=== PATIENT | female | born 1995 | race Caucasian/White ===

== ENCOUNTER 2024-07-07 09:15 | Emergency (ER) | payer BC, SELFPAY ==
[2024-07-07 09:16] VITALS: BP 155/91; PULSE 99; RESP 16; TEMP 36.1; O2SAT 100
--- NOTE | 2024-07-07 09:39 | EDS_ITS ---
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 Last night around 1030 patient was walking her house and was clumsy. She tripped over her house slippers and fell to the ground. She did not hit her head. She had pain in both of her feet and ankles but is much worse on the left. She came in for further evaluation. Denies any associated numbness or tingling. Denies any bleeding issues. No other injuries reported. States she recently moved here from [facility]. [facility] Home Medications ?Medication ?Instructions ?Recorded ?Last Taken ?Type ibuprofen 600 mg tablet 600 mg PO Q6H PRN pain #20 t abs 07/07/24 Unknown Rx Allergy/AdvReac Type Severity Reaction Status Date / Time shellfish derived Allergy Anaphylaxis Verified 07/07/24 09:18 sulfamethoxazole (From Allergy Anaphylaxis Verified 07/07/24 09:18 Bactrim) trimethoprim (From Bactrim) Allergy Anaphylaxis Verified 07/07/24 09:18 latex AdvReac RASH Verified 07/07/24 09:18 Social History Smoking Status: Never smoker ROS ROS ED Constitutional Constitutional ED: Denies chills or fever(s) Musculoskeletal Musculoskeletal: Reports other Details: Bilateral ankle pain, left worse than right. Left foot pain. Integumentary Denies Abrasions or rash Neurologic Neurologic: Denies paresthesias or weakness Hematologic/Lymphatic Hematologic/Lymphatic: Denies easy bleeding or easy bruising EXAM Physical Exam Const Vital Signs: 07/07/24 09:16 Temperature 96.9 F L Temperature Source Temporal Pulse Rate 99 Respiratory Rate 16 Blood Pressure 155/91 H Blood Pressure Mean 112 Pulse Ox 100 Oxygen Delivery Method Room Air Positive well nourished and well developed General Appearance ED: well developed and NAD HEENT Reports moist mucous membranes Chest Wall inspection of chest normal Resp normal respiratory effort and clear to auscultation bilaterally Cardio regular rate, regular rhythm and no murmurs Cardio Narrative: 2+ DP pulses Extremity Extremity Narrative: Normal range of motion of the upper extremities. No bony tenderness on palpation. Right lower extremity?no deformity or soft tissue swelling. Normal Brooks test. No fibular head tenderness. No bony tenderness to the medial lateral malleolus. No bony tenderness to the foot. Left lower extremity?soft tissue swelling noted to the foot with some associated ecchymosis. No fibular head tenderness. Calf is soft. No significant bony tenderness to the medial or lateral malleolus. Normal Brooks test. Tenderness to palpation of the metatarsal bones, most pronounced over the medial (first and second metatarsals). Able to move her toes. No deformity of the toes. Neuro oriented x3, moves all extremities and no sensory deficits noted Sensorium / Orientation: alert Motor Exam: strength 5/5 throughout; Negative for general weakness Psych mental status grossly normal Skin no wounds Skin Narrative: Small area of ecchymosis to the dorsal left foot, more pronounced over the lateral aspect. MDM MDM MDM Narrative Medical decision making narrative: Patient evaluate for mechanical trip and injury to her left foot/ankle. Differential includes ankle sprain, foot sprain, ankle fracture, foot fracture. Suspicion for dislocation based on physical exam. Will obtain x-rays and apply ice. Patient took ibuprofen this morning. X-ray reviewed by myself as well as urology does show an acute oblique intra- articular fracture involving the proximal Medifast facets of the second metatarsal. There is soft tissue swelling. This is where her pain is. Given the intra-articular involvement and her possible history of brittle bones I did speak with Dr. Dowd, podiatry on-call. He recommends nonweightbearing and splint. Will follow-up in the office. Patient is comfortable with ibuprofen Tylenol for pain control. Is given crutches in the ER. Counseled on return precautions. Counseled on splint care. Discharged home in stable condition peer Radiography Diagnostic Testing: Clinical Impression(s) from Imaging Studies Ankle X-Ray 07/07/24 09:50 IMPRESSION: No acute osseous abnormalities. Reading Location: [facility] Foot X-Ray 07/07/24 09:50 IMPRESSION: Acute oblique intra-articular fracture involving the proximal metaphysis of the 2nd metatarsal. Soft tissue swelling. Reading Location: [facility] Procedures Lower Extremity Splints Lower Extremity Splint: Orthoglass and - (Posterior short slab) Splint Fabrication: Fabricated Location: Left Discharge Plan Triage Chief Complaint: Lower Extremity Injury ED Provider: Lisseth Link Dx/Rx/DC Orders Clinical Impression: Fracture of second metatarsal bone of left foot Instructions: ED Fracture, Foot Prescriptions: New ibuprofen 600 mg tablet 600 mg PO Q6H PRN (Reason: pain) Qty: 20 0RF Primary Care Provider: Care Physician,No Primary Referrals: Jon Dowd DPM [Med Staff - Active Staff] - Care Physician,No Primary [Primary Care Provider] - Activity Restrictions/Additional Instructions: Please follow-up with podiatry. Per their recommendation, do not put any weight on your foot. Wear the splint. They will evaluate you next week to determine if you require a boot or further intervention. Continue to alternate ibuprofen and Tylenol for pain. Ice through the splint. Print Language: Angolan Disposition Disposition: Home, Self Care
--- NOTE | 2024-07-07 09:50 | RAD_ITS ---
PROCEDURE: LEFT ANKLE, THREE VIEWS REASON FOR EXAM: PATIENT FELL. PAIN. TECHNIQUE: 3 views of the LEFT ankle COMPARISON: None FINDINGS: No visible fracture. No suspicious bone lesion. Normal alignment. Mortise appears intact. No effusion. Soft tissues are unremarkable. Metallic bracelet just proximal to the ankle. RAD/Ankle min 3 Views IMPRESSION: No acute osseous abnormalities. Reading Location: [facility]
--- NOTE | 2024-07-07 09:50 | RAD_ITS ---
PROCEDURE: LEFT FOOT, THREE VIEWS REASON FOR EXAM: PATIENT FELL. ANTEROLATERAL LEFT FOOT PAIN. TECHNIQUE: THREE VIEWS OF THE LEFT FOOT. COMPARISON: None. FINDINGS: LEFT FOOT: Oblique intra-articular fracture through the medial aspect of the proximal metaphysis of the 2nd metatarsal. Displacement of the fracture fragments by approximately 0.3 cm. Soft tissue swelling. RAD/Foot min 3 Views IMPRESSION: Acute oblique intra-articular fracture involving the proximal metaphysis of the 2nd metatarsal. Soft tissue swelling. Reading Location: [facility]
== END 2024-07-07 12:06 | disposition home or self-care (01) ==
PROVIDERS: Emergency Provider Emergency Medicine; Visit Provider Emergency Medicine
DX: S92.322A Displaced fracture of second metatarsal bone, left foot, initial encounter for closed fracture (principal); M25.571 Pain in right ankle and joints of right foot; M79.671 Pain in right foot; W18.09XA Striking against other object with subsequent fall, initial encounter; Y93.01 Activity, walking, marching and hiking; Y92.019 Unspecified place in single-family (private) house as the place of occurrence of the external cause; Z88.2 Allergy status to sulfonamides; Z88.1 Allergy status to other antibiotic agents
CPT/HCPCS: 29515; 73610; 73630; 99283

== ENCOUNTER → 2024-09-14 | Outpatient (CLI) | payer BC, SELFPAY ==
--- NOTE | 2024-09-14 16:33 | MRI_ITS ---
EXAM: MRI left foot without contrast CLINICAL HISTORY: Lisfranc fracture, dislocation COMPARISON: None TECHNIQUE: T1, T2, stir, multiplanar multisequence images through the left forefoot were obtained without contrast. FINDINGS: There is a fracture of the base of the 2nd metatarsal which extends to the proximal articular surface and Lisfranc articulation, with 0.45 cm of distraction. There is dorsal and lateral displacement of the remainder of the 2nd metatarsal base and proximal diaphysis. There is bony contusion in the medial, middle, and lateral cuneiform and in the cuboid, with no visible displaced fracture. There is bony contusion in the base of the 1st, 3rd, 4th, and 5th metatarsals with no visible displaced fracture. The Lisfranc articulation is widened to 0.6 cm. There is complete disruption of the plantar band, grade 2 sprain of the dorsal band, and attenuation of the interosseous band which shows intact fibers to the avulsed fragment. There is a edema, thickening and attenuation of the dorsal and plantar capsular components of the 3rd-5th tarsometatarsal articulations, with grade 2-3 sprain. Alignment is maintained. There is no discrete hematoma or drainable fluid collection. There is a small effusion at the 3rd and 4th tarsometatarsal articulations. The flexor and extensor tendons appear intact. There is no muscular atrophy. MRI/Lower Ext/No Jt/w/o IMPRESSION: There is a fracture of the base of the 2nd metatarsal which extends to the prox imal articular surface and Lisfranc articulation, with 0.45 cm of distraction. T Here is dorsal and lateral displacement of the remainder of the 2nd metatarsal base and proximal diaphysis. There is bony contusion in the medial, middle, and lateral cuneiform and in the cuboid, with no visible displaced fracture. There is bony contusion in the base of the 1st, 3rd, 4th, and 5th metatarsals w ith no visible displaced fracture. The Lisfranc articulation is widened to 0.6 cm. There is complete disruption of the plantar band, grade 2 sprain of the dorsal band, and attenuation of the interosseous band which shows intact fibers to the avulsed fragment. There is a edema, thickening and attenuation of the dorsal and plantar capsular components of the 3rd-5th tarsometatarsal articulations, with grade 2-3 sprain. There is a small effusion at the 3rd and 4th tarsometatarsal articulations. Reading Location: [facility]
== END | disposition home or self-care (01) ==
PROVIDERS: Referring Provider Podiatrist Foot & Ankle Surgery; Visit Provider Podiatrist Foot & Ankle Surgery
DX: S93.622A Sprain of tarsometatarsal ligament of left foot, initial encounter (principal); S93.325A Dislocation of tarsometatarsal joint of left foot, initial encounter
CPT/HCPCS: 73718

== ENCOUNTER → 2024-10-14 | Outpatient (CLI) | payer BC, SELFPAY ==
[2024-10-14 19:51] LABS: Absolute Lymphocyte Count 2.49 X10^3/uL (0.83-4.51); Absolute Neutrophil Count 5.9 X10^3/uL (2.0-7.7); Basophil# 0.05 X10^3/uL; Basophil% 0.5 % (0-1); Eosinophil# 0.11 X10^3/uL; Eosinophils% 1.2 % (0-5); Hematocrit 42.1 % (37-47); Hemoglobin 13.9 g/dL (12.0-15.0); Lymphocyte # 2.49 X10^3/ul (0.83-4.51); Lymphocyte % 27.1 % (19-41); Mean Corpuscular Hgb 30.6 pg (27.0-32.0); Mean Corpuscular Volume 92.7 fL (81-99); Mean Platelet Vol. 11.2 fl (6.2-12.0); Monocyte# 0.59 X10^3/uL; Monocyte% 6.4 % (0-10); NRBC Flagged by Analyzer 0 % (0-5); Neutrophil # 5.94 X10^3/uL (2.7-7.7); Neutrophil % 64.7 % (47-70); Platelet Count 223 K/mm3 (150-450); RBC Distribution Width CV 12.9 % (11.6-14.6); RBC Distribution Width SD 43.9 fl (35.1-43.9); Red Blood Count 4.54 M/mm3 (4.2-5.4); White Blood Count 9.2 K/mm3 (4.4-11.0)
[2024-10-14 20:33] LABS: ALB/GLOB Ratio 1.3 RATIO (0.9-2.4); AST(SGOT) 15 U/L (<=31); Alanine Aminotransfer ALT/SGPT 6 U/L (<=34); Albumin, Serum 4.3 g/dL (3.5-5.0); Alkaline Phosphatase 64 U/L (35-104); Anion Gap 13 (5-15); BUN 9 mg/dL (4-19); BUN/Creat Ratio 14.4 RATIO (10-20); Calcium,Total 9.7 mg/dL (7.6-11.0); Carbon Dioxide 23.1 mmol/L (21.0-32.0); Chloride 100 mmol/L (98-108); Cholesterol 166 mg/dL (<=200); Creatinine, Serum 0.65 mg/dL (0.70-1.20); EST Glomerular Filtration Rate 121 (>60); Globulin 3.4 g/dL (2.2-4.2); Glucose 67 mg/dL (70-99); High Density Lipoprotein 44 mg/dL; Low Density Lipoprotein Calc. 106 mg/dL; Potassium 3.9 mmol/L (3.3-5.1); Protein, Total 7.7 g/dL (5.9-8.4); Sodium Level 137 mmol/L (133-145); Total Bilirubin 0.54 mg/dL (0.00-1.30); Triglycerides 79 mg/dL; Very Low Density Lipoprotein 16 mg/dL (5-40); cholesterol:hdl ratio screen 3.79
== END | disposition home or self-care (01) ==
LOC: MTLAB 15:31
PROVIDERS: PCP Family Medicine; Referring Provider Family Medicine; Visit Provider Family Medicine
DX: Z01.818 Encounter for other preprocedural examination (principal); Z13.220 Encounter for screening for lipoid disorders; Z13.1 Encounter for screening for diabetes mellitus
CPT/HCPCS: 36415; 80053; 80061; 85025

== ENCOUNTER → 2024-10-21 | Outpatient (CLI) | payer BC, SELFPAY ==
[2024-10-21 10:51] LABS: Hemoglobin A1c 5.1 % (<=5.6)
[2024-10-21 13:09] LABS: Magnesium 2.2 mg/dL (1.5-2.2); Vitamin D,25 Hydroxy 27.2 ng/mL (30-100)
== END | disposition home or self-care (01) ==
LOC: MTLAB 08:40
PROVIDERS: PCP Family Medicine; Referring Provider Podiatrist Foot & Ankle Surgery; Visit Provider Podiatrist Foot & Ankle Surgery
DX: Z01.818 Encounter for other preprocedural examination (principal)
CPT/HCPCS: 36415; 82306; 83036; 83735

== ENCOUNTER 2024-10-24 06:02 | Day surgery (SDC) | payer BC, SELFPAY ==
[2024-10-24] VITALS (11 sets, daily range): BP systolic 100–123; BP diastolic 68–81; PULSE 79–105; RESP 16–20; TEMP 36.2–37; O2SAT 88–100; BMI 29.7
--- OUTSIDE RECORDS SUMMARY | 2024-10-24 06:05 | XMS RPT_ITS | CCD ---
Author Organization [facility] Care Team Providers Care Acquisition Marketing Manager Name Role Phone AnshuladrianLisseth Attending Unavailable Care Physician, No Primary Primary Care Unava ilable DowdJon Referring Unavailable Dowd, Jon Attending Unavailable Emilie, Chalon Primary Care Unavailable Dowd, Jon Attending Unavailable Emilie, Chalon Primary Care Unavailable Dowd, Jon Referring Unavailable Dowd, Jon Attending Unavailable Care Physician, No Primary Primary Care Unava ilable Emilie, Chalon Referring Unavailable Emilie, Chalon Attending Unavailable Emilie, Chalon Primary Care Unavailable Allergies Allergy Classification Reported Allergen(s) Allergy Type Date of Onset Reaction(s) Facility (1 source) Latex Drug allergy (disorder) 5 [facility] Repository (1 source) Shellfish Drug allergy (disorder) 5 [facility] Repository (1 source) Sulfamethoxazole Drug Allergy 5 [facility] Repository (1 source) Trimethoprim Drug Allergy 5 [facility] Repository Problems Active Problems Problem Classification Problem Date Documented Date Episodic/Chronic Sprains and strains (1 source) Sprain of tarsometatarsal ligament of left foot, initial encounter; Translations: [Sprain of tarsometatarsal ligament of left foot, initial encounter] Onset: 09-17-2024 Episodic Past or Other Problems Problem Classification Problem Date Documented Da te Episodic/Chronic Other non-traumatic joint disorders (1 source) Pain in left ankle and joints of left foot; Translations: [Pain in left ankle and joints of left foot] Onset: 07-21-2024 Episodic Results Test Name Value Interpretation Reference Range Facil ity Hemoglobin A1con 10-21-2024 HbA1c (Bld) [Mass fraction] 5.1 % Normal <=5.6 [facility] Comment on above: Result Comment: Norm al < 5.7 % Prediabetic 5.7 - 6.4 % Diabetic >or= 6.5 % Please note range changes. Performed By: #### L 506.1001, L501.5200, L501.9985 #### [facility] [address] [place], [address] Magnesiumon 10-21-2024 Magnesium [Mass/Vol] 2.2 mg/dL Normal 1.5-2.2 [facility] Comment on above: Performed By: #### L 506.1001, L501.5200, L501.9985 #### [facility] [address] [place], [address] Vitamin D,25 Hydroxyon 10-21 Vitamin D 25-OH 27.2 ng/mL Low 30-100 [facility] Comment on above: Result Comment: Anne Marie min D Status Deficiency: <20 ng/mL (50nmol/L) Insufficiency: 20-30 ng/mL (50-75 nmol/L) Sufficiency: 30-100 ng/mL (75-250 nmol/L) Toxicity: >100 ng/mL (>250 nmol/L) Performed By: #### L 506.1001, L501.5200, L501.9985 #### [facility] [address] [place], [address] CBC W/Diff, Automatedon 05-3 0-2024 Absolute Lymph 2.49 X10 3/uL Normal 0.83-4.51 [facility] Comment on above: Performed By: #### L 500.4050, L500.4100, L100.0100 #### [facility] [address] [place], [address] Absolute Neut 5.9 X10 3/uL Normal 2.0-7.7 [facility] Comment on above: Performed By: #### L 500.4050, L500.4100, L100.0100 #### [facility] [address] [place], [address] Basophils/100 WBC (Bld) 0.5 % Normal 0-1 [facility] Comment on above: Performed By: #### L 500.4050, L500.4100, L100.0100 #### [facility] [address] [place], [address] Eosinophils/100 WBC (Bld) 1.2 % Normal 0-5 [facility] Comment on above: Performed By: #### L 500.4050, L500.4100, L100.0100 #### [facility] [address] [place], [address] Erythrocyte distribution width (RBC) [Ratio] 12.9 % Normal 11.6-14.6 [facility] Comment on above: Performed By: #### L 500.4050, L500.4100, L100.0100 #### [facility] [address] [place], [address] Hematocrit (Bld) [Volume fraction] 42.1 % Normal 37-47 [facility] Comment on above: Performed By: #### L 500.4050, L500.4100, L100.0100 #### [facility] [address] [place], [address] Hemoglobin (Bld) [Mass/Vol] 13.9 g/dL Normal 12.0-15.0 [facility] Comment on above: Performed By: #### L 500.4050, L500.4100, L100.0100 #### [facility] [address] [place], [address] IG% 0.100 Normal 0.0-0.9 [facility] Comment on above: Result Comment: IG% - Immature Granulocytes (promyelocytes, myelocytes and metamyelocytes) > 1% indicates that a LEFT SHIFT is Present. Performed By: #### L 500.4050, L500.4100, L100.0100 #### [facility] [address] [place], [address] Lymphocytes/100 WBC (Bld) 27.1 % Normal 19-41 [facility] Comment on above: Performed By: #### L 500.4050, L500.4100, L100.0100 #### [facility] [address] [place], [address] MCH (RBC) [Entitic mass] 30.6 pg Normal 27.0-32.0 [facility] Comment on above: Performed By: #### L 500.4050, L500.4100, L100.0100 #### [facility] [address] [place], [address] MCHC (RBC) [Mass/Vol] 33.0 g/dL Normal 32-36 [facility] Comment on above: Performed By: #### L 500.4050, L500.4100, L100.0100 #### [facility] [address] [place], [address] MCV (RBC) [Entitic vol] 92.7 fL Normal 81-99 [facility] Comment on above: Performed By: #### L 500.4050, L500.4100, L100.0100 #### [facility] [address] [place], [address] Monocytes/100 WBC (Bld) 6.4 % Normal 0-10 [facility] Comment on above: Performed By: #### L 500.4050, L500.4100, L100.0100 #### [facility] [address] [place], [address] Neutrophils/100 WBC (Bld) 64.7 % Normal 47-70 [facility] Comment on above: Performed By: #### L 500.4050, L500.4100, L100.0100 #### [facility] [address] [place], [address] Nucleated RBC (Bld) [#/Vol] 0 10*3/uL Normal 0-5 [facility] Comment on above: Performed By: #### L 500.4050, L500.4100, L100.0100 #### [facility] [address] [place], [address] Platelet mean volume (Bld) [Entitic vol] 11.2 fL Normal 6.2-12.0 [facility] Comment on above: Performed By: #### L 500.4050, L500.4100, L100.0100 #### [facility] [address] [place], [address] Platelets (Bld) [#/Vol] 223 10*3/uL Normal 150-450 [facility] Comment on above: Performed By: #### L 500.4050, L500.4100, L100.0100 #### [facility] [address] [place], [address] RBC (Bld) [#/Vol] 4.54 10*6/uL Normal 4.2-5.4 [facility] Comment on above: Performed By: #### L 500.4050, L500.4100, L100.0100 #### [facility] [address] [place], [address] RDW SD 43.9 fl Normal 35.1-43.9 [facility] Comment on above: Performed By: #### L 500.4050, L500.4100, L100.0100 #### [facility] [address] [place], [address] WBC (Bld) [#/Vol] 9.2 10*3/uL Normal 4.4-11.0 [facility] Comment on above: Performed By: #### L 500.4050, L500.4100, L100.0100 #### [facility] [address] [place], [address] Comprehensive Metabolic [facility] 10-14-2024 Albumin [Mass/Vol] 4.3 g/dL Normal 3.5-5.0 [facility] Comment on above: Performed By: #### L 500.4050, L500.4100, L100.0100 #### [facility] [address] [place], [address] Albumin/Globulin [Mass ratio] 1.3 {ratio} Normal 0.9-2.4 [facility] Comment on above: Performed By: #### L 500.4050, L500.4100, L100.0100 #### [facility] [address] [place], [address] ALK PHOS 64 U/L Normal 35-104 [facility] Comment on above: Performed By: #### L 500.4050, L500.4100, L100.0100 #### [facility] [address] [place], [address] ALT [Catalytic activity/Vol] 6 U/L Normal <=34 [facility] Comment on above: Performed By: #### L 500.4050, L500.4100, L100.0100 #### [facility] [address] [place], [address] AST [Catalytic activity/Vol] 15 U/L Normal <=31 [facility] Comment on above: Performed By: #### L 500.4050, L500.4100, L100.0100 #### [facility] [address] [place], [address] Bilirubin [Mass/Vol] 0.54 mg/dL Normal 0.00-1.30 [facility] Comment on above: Performed By: #### L 500.4050, L500.4100, L100.0100 #### [facility] [address] [place], [address] BUN/CRE 14.4 RATIO Normal 10-20 [facility] Comment on above: Performed By: #### L 500.4050, L500.4100, L100.0100 #### [facility] [address] [place], [address] Calcium [Mass/Vol] 9.7 mg/dL Normal 7.6-11.0 [facility] Comment on above: Performed By: #### L 500.4050, L500.4100, L100.0100 #### [facility] [address] [place], [address] Chloride [Moles/Vol] 100 mmol/L Normal 98-108 [facility] Comment on above: Performed By: #### L 500.4050, L500.4100, L100.0100 #### [facility] [address] [place], [address] CO2 [Moles/Vol] 23.1 mmol/L Normal 21.0-32.0 [facility] Comment on above: Performed By: #### L 500.4050, L500.4100, L100.0100 #### [facility] [address] [place], [address] Creatinine [Mass/Vol] 0.65 mg/dL Low 0.70-1.20 [facility] Comment on above: Performed By: #### L 500.4050, L500.4100, L100.0100 #### [facility] [address] [place], [address] GAP 13 Normal 5-15 [facility] Comment on above: Performed By: #### L 500.4050, L500.4100, L100.0100 #### [facility] [address] [place], [address] GFR/1.73 sq M.predicted among non-blacks MDRD (S/P/Bld) [Vol rate/Area] 121 mL/min/{1.73_m2} Normal >60 [facility] Comment on above: Result Comment: mL/m in/1.73m2 CKD-EPI Creatinine Equation (2020) Performed By: #### L 500.4050, L500.4100, L100.0100 #### [facility] [address] [place], [address] Globulin (S) [Mass/Vol] 3.4 g/dL Normal 2.2-4.2 [facility] Comment on above: Performed By: #### L 500.4050, L500.4100, L100.0100 #### [facility] [address] [place], [address] Glucose [Mass/Vol] 67 mg/dL Low 70-99 [facility] Comment on above: Performed By: #### L 500.4050, L500.4100, L100.0100 #### [facility] [address] [place], [address] Potassium [Moles/Vol] 3.9 mmol/L Normal 3.3-5.1 [facility] Comment on above: Performed By: #### L 500.4050, L500.4100, L100.0100 #### [facility] [address] [place], [address] Sodium [Moles/Vol] 137 mmol/L Normal 133-145 [facility] Comment on above: Performed By: #### L 500.4050, L500.4100, L100.0100 #### [facility] [address] [place], [address] T PROT 7.7 g/dL Normal 5.9-8.4 [facility] Comment on above: Performed By: #### L 500.4050, L500.4100, L100.0100 #### [facility] [address] [place], [address] Urea nitrogen [Mass/Vol] 9 mg/dL Normal 4-19 [facility] Comment on above: Performed By: #### L 500.4050, L500.4100, L100.0100 #### [facility] [address] [place], [address] Lipid Profileon 10-14-2024 CHOL:HDL 3.79 Normal [facility] Comment on above: Performed By: #### L 500.4050, L500.4100, L100.0100 #### [facility] [address] [place], [address] Cholesterol [Mass/Vol] 166 mg/dL Normal <=200 [facility] Comment on above: Result Comment: Chol esterol level, Desirable <200 mg/dL Borderline high cholesterol 200-239 mg/dL High cholesterol >=240 mg/dL Recommendations of the NCEP Adult Treatment Panel for the following risk-cutoff thresholds for the [place] population. Performed By: #### L 500.4050, L500.4100, L100.0100 #### [facility] [address] [place], [address] Cholesterol in HDL [Mass/Vol] 44 mg/dL Normal [facility] Comment on above: Result Comment: Laury onal Cholesterol Education Program (NCEP) guidelines: <40 mg/dL: Low HDL-cholesterol (major risk factor for CHD) >= 60 mg/dL: High HDL-cholesterol (negative risk factor for CHD) HDL-cholesterol is affected by a number of factors, e.g. smoking, exercise, hormones, sex and age. Performed By: #### L 500.4050, L500.4100, L100.0100 #### [facility] [address] [place], [address] Cholesterol in LDL [Mass/Vol] 106 mg/dL Normal [facility] Comment on above: Result Comment: Bord ljiwcu=370-127 mg/dL Higher Ccyq=387 mg/dL or greater Performed By: #### L 500.4050, L500.4100, L100.0100 #### [facility] [address] [place], [address] Cholesterol in VLDL [Mass/Vol] 16 mg/dL Normal 5-40 [facility] Comment on above: Performed By: #### L 500.4050, L500.4100, L100.0100 #### [facility] [address] [place], [address] Triglyceride [Mass/Vol] 79 mg/dL Normal [facility] Comment on above: Result Comment: The drugs N-Acetylcysteine and Metamizole may falsely depress this assay. Normal range: <150 mg/dL Borderline High: 150-199 mg/dL High: 200-499 mg/dL Very High: >500 mg/dL Performed By: #### L 500.4050, L500.4100, L100.0100 #### [facility] [address] [place], [address] Lower Ext/No Jt/w/oon 2024 Lower Ext/No Jt/w/o [facility] Imaging Services [address] [place] [address] Lower Ext/No Jt/w/o MR#: [id number] Acct: [id number] Name: ELVIRA MURPHY YUDY Rep #: [id number] : 1995 F 28 From: Phill Sweeney MD PCP: Care Physician,No Primary Status: REG CLI Study: Lower Ext/No Jt/w/o Date of Exam: 09/14/24 Exam# [id number] Ordering Dr: Jon Dowd DPM EXAM: MRI left foot without contrast CLINICAL HISTORY: Lisfranc fracture, dislocation COMPARISON: None TECHNIQUE: T1, T2, stir, multiplanar multisequence images through the left forefoot were obtained without contrast. FINDINGS: There is a fracture of the base of the 2nd metatarsal which extends to the proximal articular surface and Lisfranc articulation, with 0.45 cm of distraction. There is dorsal and lateral displacement of the remainder of the 2nd metatarsal base and proximal diaphysis. There is bony contusion in the medial, middle, and lateral cuneiform and in the cuboid, with no visible displaced fracture. There is bony contusion in the base of the 1st, 3rd, 4th, and 5th metatarsals with no visible displaced fracture. The Lisfranc articulation is widened to 0.6 cm. There is complete disruption of the plantar band, grade 2 sprain of the dorsal band, and attenuation of the interosseous band which shows intact fibers to the avulsed fragment. There is a edema, thickening and attenuation of the dorsal and plantar capsular components of the 3rd-5th tarsometatarsal articulations, with grade 2-3 sprain. Alignment is maintained. There is no discrete hematoma or drainable fluid collection. There is a small effusion at the 3rd and 4th tarsometatarsal articulations. The flexor and extensor tendons appear intact. There is no muscular atrophy. MRI/Lower Ext/No Jt/w/o IMPRESSION: There is a fracture of the base of the 2nd metatarsal which extends to the proximal articular surface and Lisfranc articulation, with 0.45 cm of distraction. T Here is dorsal and lateral displacement of the remainder of the 2nd metatarsal base and proximal diaphysis. There is bony contusion in the medial, middle, and lateral cuneiform and in the cuboid, with no visible displaced fracture. There is bony contusion in the base of the 1st, 3rd, 4th, and 5th metatarsals with no visible displaced fracture. The Lisfranc articulation is widened to 0.6 cm. There is complete disruption of the plantar band, grade 2 sprain of the dorsal band, and attenuation of the interosseous band which shows intact fibers to the avulsed fragment. There is a edema, thickening and attenuation of the dorsal and plantar capsular components of the 3rd-5th tarsometatarsal articulations, with grade 2-3 sprain. There is a small effusion at the 3rd and 4th tarsometatarsal articulations. Reading Location: [facility] CC: NATACHA Dowd; No Primary Care Physician Mannequin Decorator: Signed Normal [facility] Ankle min 3 Viewson 07-07-19 Ankle min 3 Views [facility] Imaging Services [address] [place] [address] Ankle min 3 Views MR#: [id number] Acct: [id number] Name: ELVIRA MURPHY YUDY Rep #: [id number] : 1995 F 28 From: Duane Galicia MD PCP: Care Physician,No Primary Status: REG ER Study: Ankle min 3 Views Date of Exam: 07/07/24 Exam# [id number] Ordering Dr: Lisseth Link DO PROCEDURE: LEFT ANKLE, THREE VIEWS REASON FOR EXAM: PATIENT FELL. PAIN. TECHNIQUE: 3 views of the LEFT ankle COMPARISON: None FINDINGS: No visible fracture. No suspicious bone lesion. Normal alignment. Mortise appears intact. No effusion. Soft tissues are unremarkable. Metallic bracelet just proximal to the ankle. RAD/Ankle min 3 Views IMPRESSION: No acute osseous abnormalities. Reading Location: [facility] CC: Dr. Lisseth Link DO; No Primary Care Physician Mannequin Decorator: Signed Normal [facility] Emergency Department Summary on 07-07-2024 Emergency Department Summary [facility] Medical Records Department [address] [place] [address] Emergency Department Summary 07/07/24 MR#: [id number] Acct: [id number] Name: ELVIRA MURPHY YUDY Rep #: [id number] : 1995 28 From: Lisseth Link DO PCP: Care Physician,No Primary Status:REG ER Location: ED HPI History of Present Illness Chief Complaint: Lower Extremity Injury Informant: patient Narrative Narrative: Patient is a 28-year-old female with 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 Last night around 1030 patient was walking her house and was clumsy. She tripped over her house slippers and fell to the ground. She did not hit her head. She had pain in both of her feet and ankles but is much worse on the left. She came in for further evaluation. Denies any associated numbness or tingling. Denies any bleeding issues. No other injuries reported. States she recently moved here from [facility] Home Medications ???Medication ???Instructions ???Recorded ???Last Taken ???Type ibuprofen 600 mg tablet 600 mg PO Q6H PRN pain #20 tabs Unknown Rx Allergy/AdvReac Type Severity Reaction Status Date / Time shellfish derived Allergy Anaphylaxis Verified 07/07/24 09:18 sulfamethoxazole (From Allergy Anaphylaxis Verified 07/07/24 09:18 Bactrim) trimethoprim (From Bactrim) Allergy Anaphylaxis Verified 07/07/24 09:18 latex AdvReac RASH Verified 07/07/24 09:18 Social History Smoking Status: Never smoker ROS ROS ED Constitutional Constitutional ED: Denies chills or fever(s) Musculoskeletal Musculoskeletal: Reports other Details: Bilateral ankle pain, left worse than right. Left foot pain. Integumentary Denies Abrasions or rash Neurologic Neurologic: Denies paresthesias or weakness Hematologic/Lymphatic Hematologic/Lymphatic: Denies easy bleeding or easy bruising EXAM Physical Exam Const Vital Signs: 07/07/24 09:16 Temperature 96.9 F L Temperature Source Temporal Pulse Rate 99 Respiratory Rate 16 Blood Pressure 155/91 H Blood Pressure Mean 112 Pulse Ox 100 Oxygen Delivery Method Room Air Positive well nourished and well developed General Appearance ED: well developed and NAD HEENT Reports moist mucous membranes Chest Wall inspection of chest normal Resp normal respiratory effort and clear to auscultation bilaterally Cardio regular rate, regular rhythm and no murmurs Cardio Narrative: 2+ DP pulses Extremity Extremity Narrative: Normal range of motion of the upper extremities. No bony tenderness on palpation. Right lower extremity???no deformity or soft tissue swelling. Normal Brooks test. No fibular head tenderness. No bony tenderness to the medial lateral malleolus. No bony tenderness to the foot. Left lower extremity???soft tissue swelling noted to the foot with some associated ecchymosis. No fibular head tenderness. Calf is soft. No significant bony tenderness to the medial or lateral malleolus. Normal Brooks test. Tenderness to palpation of the metatarsal bones, most pronounced over the medial (first and second metatarsals). Able to move her toes. No deformity of the toes. Neuro oriented x3, moves all extremities and no sensory deficits noted Sensorium / Orientation: alert Motor Exam: strength 5/5 throughout; Negative for general weakness Psych mental status grossly normal Skin no wounds Skin Narrative: Small area of ecchymosis to the dorsal left foot, more pronounced over the lateral aspect. MDM MDM MDM Narrative Medical decision making narrative: Patient evaluate for mechanical trip and injury to her left foot/ankle. Differential includes ankle sprain, foot sprain, ankle fracture, foot fracture. Suspicion for dislocation based on physical exam. Will obtain x-rays and apply ice. Patient took ibuprofen this morning. X-ray reviewed by myself as well as urology does show an acute oblique intra-articular fracture involving the proximal Medifast facets of the second metatarsal. There is soft tissue swelling. This is where her pain is. Given the intra-articular involvement and her possible history of brittle bones I did speak with Dr. Dowd, podiatry on-call. He recommends nonweightbearing and splint. Will follow-up in the office. Patient is comfortable with ibuprofen Tylenol for pain control. Is given crutches in the ER. Counseled on return precautions. Counseled on splint care. Discharged home in stable condition peer Radiography Diagnostic Testing: Clinical Impression(s) from Imaging Studies Ankle X-Ray 07/07/24 09:50 IMPRESSION: No acute osseous abnormalit (more content not included)... Normal [facility] Foot min 3 Viewson 5 Foot min 3 Views [facility] Imaging Services [address] [place], [place] [address] Foot min 3 Views MR#: [id number] Acct: [id number] Name: ELVIRA MURPHY YUDY Rep #: [id number] : 1995 F 28 From: Duane Galicia MD PCP: Care Physician,No Primary Status: REG ER Study: Foot min 3 Views Date of Exam: 07/07/24 Exam# [id number] Ordering Dr: Lisseth Link DO PROCEDURE: LEFT FOOT, THREE VIEWS REASON FOR EXAM: PATIENT FELL. ANTEROLATERAL LEFT FOOT PAIN. TECHNIQUE: THREE VIEWS OF THE LEFT FOOT. COMPARISON: None. FINDINGS: LEFT FOOT: Oblique intra-articular fracture through the medial aspect of the proximal metaphysis of the 2nd metatarsal. Displacement of the fracture fragments by approximately 0.3 cm. Soft tissue swelling. RAD/Foot min 3 Views IMPRESSION: Acute oblique intra-articular fracture involving the proximal metaphysis of the 2nd metatarsal. Soft tissue swelling. Reading Location: [facility] CC: Dr. Lisseth Link, DO; No Primary Care Physician Mannequin Decorator: Signed Normal [facility] Encounters Encounter Date Encounter Type Care Provider Facility Start: 10-24-2024 [facility] Facility: [facility] Start: 10-21-2024 Encounter for other preprocedural examination [facility] Start: 10-21-2024 ambulatory [facility] Facility: [facility] Start: 10-18-2024 Encounter for other preprocedural examination [facility] Start: 10-14-2024 End: 10-14-2024 ambulatory [facility] Facility:[facility] Start: 09-14-2024 End: 09-14-2024 ambulatory [facility] Facility:[facility] Start: 07-07-2024 End: 07-07-2024 Emergency department patient visit Lisseth Link Facility:[facility] Payers Date Payer Category Payer Self-pay 2024 Unknown [id number] Unknown [id number] Unknown [id number] Unknown [id number] Unknown [id number] Unknown [id number] Summary Purpose Family History No Family History Records Found Advance Directives No Advanced Directives Records Found Additional Source Comments INFORMATION SOURCE (unrecogn ized section and content) DATE CREATED AUTHOR 10/22/2024 [facility] FOR RECORDS PERTAINING TO PATIENTS WHO ARE OR HAVE BEEN ENROLLED IN A CHEMICAL DEPENDENCY/SUBSTANCEABUSE PROGRAM, SOME INFORMATION MAY BE OMITTED. This clinical summary was aggregated from multiple sources. Caution should be exercised in using it in the provision of clinical care. This summary normalizes information from multiple sources, and as a consequence, information in this document may materially change the coding, format and clinical context of patient data. In addition, data may be omitted in some cases. CLINICAL DECISIONS SHOULD BE BASED ON THE PRIMARY CLINICAL RECORDS. [facility]. provides no warranty or guarantee of the accuracy or completeness of information in this document.
[2024-10-24 06:48] LABS: Internal QC Validated? YES +Cl - CLEAR BKGD; Pregnancy, Urine Negative Negative
[2024-10-24] MEDS: Lactated Ringers 1,000 ML 15 ML IV (07:03)
[2024-10-24] MEDS: Magnesium 1 GM over 15 mins IV (07:04)
[2024-10-24] MEDS: Acetaminophen 500 MG Tablet 1000 MG PO (07:16)
[2024-10-24] MEDS: Gabapentin 600 MG Tablet PO (07:16)
[2024-10-24] MEDS: Thrombin 5,000 IU Kit (PSA) 5,000 IU Vial 5000 IU TOPICAL (07:18)
--- NOTE | 2024-10-24 07:18 | PCM.PRE.AN2 ---
ASA Classification* ASA Classification ASA Classification: 2 Assessment & Plan Anesthesia* Anesthesia Assessment Anesthesia Assessment: Discussed sedation and/or anesthesia options, risks, benefits, and alternatives with patient/parents/legal guardian/POA. Questions invited. The patient/parents/legal guardian/POA seems to understand and agrees to proceed with anesthesia plan. Reviewed the physical assessment, medical history, allergy history and patient home medications list prior to surgery/procedure/anesthetic and documented any changes. Performed airway and anesthesia risk assessments. Anesthesia Type Anesthesia Type: General and Block (Popliteal requested) Anesthesia Focused Assessment* Temperature: 98.4 F Pulse Rate: 97 Blood Pressure: 113/68 Respiratory Rate: 16 Pulse Ox: 97 Airway Assessment Mouth opens: >3 cm Mallampati Score: II Labs Anesthesia Preop lab: CBC WBC 9.2 K/mm3 (4.4-11.0) 10/14/24 15:51 10/14/24 RBC 4.54 M/mm3 (4.2-5.4) 10/14/24 15:51 10/14/24 Hgb 13.9 g/dL (12.0-15.0) 10/14/24 15:51 10/14/24 Hct 42.1 % (37-47) 10/14/24 15:51 10/14/24 Plt Count 223 K/mm3 (150-450) 10/14/24 15:51 10/14/24 CHEMISTRY Potassium 3.9 mmol/L (3.3-5.1) 10/14/24 15:10/14/24 Sodium 137 mmol/L (133-145) 10/14/24 15:51 10/14/24 Magnesium 2.2 mg/dL (1.5-2.2) 10/21/24 08:53 10/21/24 BUN 9 mg/dL (4-19) 10/14/24 15:51 10/14/24 Creatinine 0.65 mg/dL (0.70-1.20) L 10/14/24 15:51 10/14/24 Glucose 67 mg/dL (70-99) L 10/14/24 15:51 10/14/24 COAG Urine Test Negative Negative 10/24/24 06:10/24/24 Pre-Assessment Diagnosis/Proposed Procedure Planned Operative Procedure(s): LEFT OPEN TREATMENT OF TARSOMETATARSAL JOINT DISLOCATION Anesthesia History Anesthesia History - consumer educator: Anesthesia History - consumer educator Hx Hospitalization No 10/13/24 08:33 Any Problems With Anesthesia Yes: SLOW TO AWAKEN 10/13/24 08:33 Cholinesterase deficiency No 10/13/24 08:33 You/Your Family Experience No 10/13/24 08:33 fever (hyperthermia) with Relationship Recent Exposure to Contagious No 10/24/24 06:44 Disease Does patient have nerve No 10/13/24 08:33 stimulator Patient instructed to have device shut off --Does patient have Pacemaker No 10/24/24 06:47 or ICD? When Was Last Pacemaker Check QUESTION #4 FULL TEXT: You/Your Family Experience fever (hyperthermia) with Anesthesia Last Oral Intake Last Oral intake: Last Oral Intake NPO since 00:00 10/24/24 06:47 Meds taken in AM with sips of Yes 10/24/24 06:47 water? Meds patient instructed to take am of surgery PONV PONV - consumer educator: PONV - consumer educator Female Yes 10/13/24 08:33 HX of Motion Sickness No 10/13/24 08:33 HX of N/V After Surgery No 10/13/24 08:33 Non-Smoker No 10/13/24 08:33 Duration of Surgery greater Yes 10/13/24 08:33 than 60 minutes Number of Risk Factors 2 10/13/24 08:33 PONV Score Moderate Risk 10/13/24 08:33 Height & Weight Height & Weight: Anesthesia: Height & Weight Height 5 ft 7 in 10/24/24 06:47 Weight: 86.183 kg 10/24/24 06:47 Body Mass Index (BMI) 29.7 10/24/24 06:47 Respiratory Assessment Respiratory Assessment - consumer educator: Respiratory Tract Infection Hx - consumer educator Hx Respiratory Tract Infection No 10/13/24 08:33 STOP Sleep Apnea STOP Sleep Apnea - consumer educator: STOP Sleep Apnea - consumer educator Hx Hypertension No 10/13/24 08:33 Hx Sleep Apnea No 10/13/24 08:33 CPAP BIPAP Do you snore loudly (louder Yes 10/13/24 08:33 than talking or can be heard Do you often feel tired/ No 10/13/24 08:33 fatigued/ sleepy during daytime? Has anyone observed you stop No 10/13/24 08:33 breathing during sleep? STOP Results Negative 10/13/24 08:33 QUESTION #5 FULL TEXT : Do you snore loudly (louder than talking or can be heard through closed doors)? Tobacco Use History Tobacco Use History - consumer educator: Tobacco Use History - consumer educator Tobacco Use Smoking Status Current every day smoker 10/13/24 08:33 Hx Tobacco Use Yes 10/13/24 08:33 Years Smoking Packs Smoked per Day Smoking Cessation Date was within the last 15 years Hx Smoking Cessation Date Hx Smoking Cessation Counseling Hematologic Medial History Hematologic Hx - consumer educator: Hematologic Medical Hx - train brakeman Hx of Blood Transfusion No 10/13/24 08:33 Hx of Transfusion in last 3 No 10/13/24 08:33 Months Date of Last Transfusion (if within last 3 months) Ever experience any problems No 10/13/24 08:33 with transfusion(s)? Specify any problems Hx of Preganancy in last 3 No 10/13/24 08:33 Months Nurse Filling Out Transfusion DSCHRIBER 10/13/24 08:33 & Questions: Date: 10/13/24 10/13/24 08:33 Time: 08:34 10/13/24 08:33 Patient unable to answer at this time (ie. confused, unrespo /Reproduction History /Reproductive History - consumer educator: /Reproductive Hx- consumer educator Hx Now No 10/13/24 08:33 Gestational Age (in weeks): EDC: Hx Hx Para Hx Section SAB No 10/13/24 08:33 Active Medications Active Medications: Current Medications Generic Name Dose Route Start Last Admin Trade Name Freq PRN Reason Stop Dose Admin Cefazolin Sodium 2 gm/ Sodium 110 mls @ 150 mls/hr 10/24/24 07:30 Chloride IV 10/24/24 08:13 INTRAOP ONE Magnesium Sulfate 1 gm/ 102 mls @ 408 mls/hr 10/24/24 07:30 10/24/24 07:04 Dextrose IV 10/24/24 07:44 408 mls/hr INTRAOP ONE Administration Lactated Ringer's 1,000 mls @ 15 mls/hr 10/24/24 06:30 10/24/24 07:03 IV 15 mls/hr .Q48H KAYLA Administration Insulin Human Lispro 1 - 6 unit 10/24/24 07:15 Insulin Lispro 100 Unit/Ml Insuln.Pen SC 10/24/24 18:00 Q4H PRN PRN BG>/= 180, SEE PROTOCOL Protocol PFSH Medical History Wears glasses Depression Anxiety Arthritis Easy bruising Restless legs Heartburn Vapes nicotine containing substance Asthma History of pain when walking History of edema Home Medications ?Medication ?Instructions ?Recorded ?Last Taken ?Type ibuprofen 600 mg tablet 600 mg PO Q6H PRN pain #20 tabs 07/07/24 10/21/24 Rx clonazepam 1 mg tablet 1 mg PO TID PRN PRN anxiety 10/13/24 10/24/24 06:00 History phentermine 37.5 mg tablet 37.5 mg PO DAILY 10/13/24 10/14/24 History (Adipex-P) topiramate 100 mg tablet 100 mg PO QPM 10/13/24 10/22/24 History venlafaxine 150 mg 150 mg PO DAILY 10/13/24 10/24/24 06:00 History capsule,extended release 24 hr baclofen 10 mg tablet 10 mg PO BID PRN PRN muscle 10/24/24 10/18/24 History relaxant Allergy/AdvReac Type Severity Reaction Status Date / Time shellfish derived Allergy Anaphylaxis Verified 10/24/24 06:40 sulfamethoxazole (From Allergy Anaphylaxis Verified 10/24/24 06:40 Bactrim) trimethoprim (From Bactrim) Allergy Anaphylaxis Verified 10/24/24 06:40 latex AdvReac RASH Verified 10/24/24 06:40 Surgical History Hx of ureter repair Hx of tonsillectomy Social History Smoking Status: Never smoker Review of Systems (Anesthesia) ROS Narrative System reviewed and no additional complaints, except as documented.
[2024-10-24] MEDS: Cefazolin 2 GM in 0.9% Normal Saline (100mL Bag) 100 ML IV (07:36)
[2024-10-24 07:48] LABS: Bedside Glucose 96 mg/dL (74-106)
--- NOTE | 2024-10-24 08:03 | RAD_ITS ---
PROCEDURE: FOOT 2 VIEWS 10/24/2024 REASON FOR EXAM: OPEN REDUTION LEFT FOOT JOINT DISLOCATION TECHNIQUE: Fluoro was provided. 12 images, 389.5 seconds, 5.95 mGy COMPARISON: July 07, 2024 FINDINGS: Fluoro was provided. RAD/Foot 2 Views IMPRESSION: Fluoro was provided. Reading Location: [facility]
[2024-10-24] MEDS: Heparin 10,000 UNITS/10 ML Vial 10000 UNITS (08:17)
[2024-10-24] MEDS: Calcium Chloride 1 GM/10 ML Syringe (08:19)
[2024-10-24] MEDS: Bupivacaine Mpf 0.5% 30 ML VIAL (10:16)
[2024-10-24] MEDS: Bacitracin 500 UNITS/GM PACKET (10:17)
--- NOTE | 2024-10-24 10:35 | PCM.OPRPT ---
Problems Associated Problem List Diagnoses (1) Pain in left foot: (2) Nondisplaced fracture of second metatarsal bone, left foot, initial encounter for closed fracture: (3) Sprain of tarsometatarsal ligament of left foot, initial encounter: (4) Dislocation of tarsometatarsal joint of left foot, initial encounter: Operative Report (Standard) Operative Information Date of Procedure: 10/24/24 Pre-Operative Diagnosis: 1. Pain, left foot 2. Dislocation tarsometatarsal joint, left foot 3. Sprain, tarsometatarsal ligament, left foot 4. Second metatarsal fracture, left foot Post-Operative Diagnosis: 1. Pain, left foot 2. Dislocation tarsometatarsal joint, left foot 3. Sprain, tarsometatarsal ligament, left foot 4. Second metatarsal fracture, left foot Surgery/Procedure Performed: Procedure #1: [place] of bone marrow aspirate concentrate, left lower extremity Procedure #2: Open reduction internal fixation of second metatarsal fracture with Lisfranc ligament disruption, left lower extremity brim stiffener: Yes Dialysis Rn: Raudel Amor Tasks completed by first assistant manager: Closing, Dissecting tissue and Implanting device Additional assistant principal?: No Type of Anesthesia: General/Regional and Local RN Documented Start/Stop Times: Operation Date: 10/24/24 07:30 Case Time Into Pre-Op 10/24/24 06:28 Out of Pre-Op 10/24/24 07:25 Anesthesia Start 10/24/24 07:35 Into Room 10/24/24 07:35 Procedure Start 10/24/24 07:53 Procedure End 10/24/24 10:27 Anesthesia End 10/24/24 10:33 Out of Room 10/24/24 10:33 Into Recovery 10/24/24 10:35 Out of Recovery 10/24/24 11:47 Into Phase II Recovery 10/24/24 11:48 Out of Phase II 10/24/24 12:57 Procedure Start Time: 07:53 Procedure Stop Time: 10:27 Select all DRAINS/GRAFTS/IMPLANTS that apply: Tissue Tissue details: Bone marrow aspirate concentrate, 6 cc and Implanted device Implanted device details: Arthrex Lisfranc tight rope, 5 hole straight plate and 2-0 Screws Special Medications: Per anesthesia Estimated Blood Loss: 25 cc Fluids Replaced: Per anesthesia Specimen collected: No Description of surgery: Indications For Operation: Ms. Griffiths is a 29-year-old female who was admitted to [facility] for left lower extremity surgery due to a fall from the stairs approximately 3 months ago. The patient was initially seen at the emergency room and followed up in private office for further evaluation. Upon initial visit the patient showed evidence of a subtle avulsion fracture to the second metatarsal but was unable to place weight for adequate weightbearing radiographs. Approximately 2 weeks after the injury the patient was able to put partial weightbearing down on her left foot and x-rays were taken that showed evidence and concern for a Lisfranc ligament disruption due to the diastases. MRI was ordered and once approved the patient received an MRI that showed evidence of complete rupture of the plantar and interosseous Lisfranc ligament as well as the fracture to the base of the second metatarsal. Upon this finding I discussed with the patient in great detail that she will need to move forward with surgery or that she could have severe catastrophic collapse of her midfoot if this will go untreated which she was definitely understanding of. We would plan surgery after she worked a little longer at her job to secure paid time off, once confirmed she obtain surgical consultation in the office all risk and benefits discussed with her in great detail. Chart review consent signed. Due to nature of the fracture as well as disruption of the Lisfranc ligament to the left foot it was deemed necessary at this time to take the patient to the operating room to perform above procedure to help reduce her second metatarsal base to anatomic position to help reduce her constant pain. The nature of the problem, anticipated procedures, postop recovery/convalences and risk/complications include but not limited to infection, wound healing complications, digital amputation, hypertrophic scarring, numbness, tingling, chronic pain, CRPS, over and under correction, recurrence of deformity, DVT and or PE and the need for further surgery have been discussed in great detail with the patient. All questions have been answered to the patient's satisfaction. There are no guarantees given as to the outcome of the procedure. Description of Procedure: Under mild sedation, the patient was brought into the operating room and placed on the operating table in supine position. Once the patient was under general anesthesia with [place] mask airway, the left lower extremity was blocked using approximately 10 cc 0.5% Marcaine plain to the saphenous nerve of the left lower extremity. The patient did receive a pop to a block in the PACU prior to the case. Please see anesthesia note for further detail. Next, a well-padded thigh tourniquet was applied to the left lower extremity. Next, the left lower extremity was prepped and draped in normal aseptic manner. Next, a timeout was then undertaken verifying the correct patient, extremity, visibility of preoperative markings, availability of the equipment. Procedure #1: [place] of bone marrow aspirate concentrate, left lower extremity (CPT code: 98702) Next, attention was directed to the left lower extremity at the level of the lateral calcaneus. Using a Jamshidi needle and mallet the trocar was inserted to the lateral wall of the calcaneus without incident. Approximately 60 cc of bone marrow aspirate concentrate was harvested passed the back table to be used later on in the case. The puncture area was flushed with copious normal saline and closed using 3-0 nylon in simple interrupted suture technique. Next, attention was directed to the left lower extremity. Using a 4 [place], left lower extremity was exsanguinated and elevated to 60 degrees for 1 minute. Procedure #2: Open reduction internal fixation of second metatarsal fracture with Lisfranc ligament disruption, left lower extremity (CPR code: 88840) Next, attention was directed to the dorsal aspect of the left foot. Using a [place] and large, fluoroscopy, the skin incision was marked out with sterile skin marker just dorsal to the intercuneiform and second metatarsal. Using a #15 blade, full-thickness incision down to subcutaneous tissue was performed. Continued blunt dissection was carried down past the subcutaneous layer to the level of the periosteum using Metzenbaum scissors without incident. A [place] was used to make a hole distally to proximal to ensure the that the neurovascular bundle was fully retracted laterally. A #15 blade was used to cut along the [place] without incident. Continue blunt dissection with 15 blade was carried down and around the medial lateral side of the second metatarsal identifying the fracture which was plantar medial in nature. The Lisfranc ligament and joint was distracted manually and a sharp osteotome was used to free up all of the healing bone. [place] was used to remove any excess bone that was inhibiting the reduction of the base of the second metatarsal to the first cuneiform. Using point point tenaculums the tenaculums were placed from distal lateral to proximal medial allowing reduction of the Lisfranc ligament. Once confirmed on large cam fluoroscopy the K wire was placed in the anatomy of the Lisfranc ligament from distal lateral to proximal medial. The trajectory of the K wire was checked dorsally and laterally on nonsterile fluoroscopy. Using the drill for the urban planning teacher's recommendation, the drill was inserted from lateral to medial and the Arthrex Lisfranc internal brace was inserted from medial to lateral. The suture button was flipped and secured in place against the second metatarsal base laterally, and the additional suture button medially was tensioned down per the urban planning teacher's recommendation against the first cuneiform. Adequate duction anatomic it was noted clinically as well as on large C-arm fluoroscopy. All excess suture was cut with 15 blade on the medial side. The Lisfranc ligament was stressed which showed no evidence of movement at this time. Next, a 5 hole plate was placed dorsally across the intermediate cuneiform and the second metatarsal and locked in place with a combination of 2 oh locking and nonlocking screws. The incision was flushed with copious normal saline. The tourniquet was deflated and reperfusion was noted instantly to the left lower extremity with all bleeders cauterized and ligated as necessary. The deep layer was reapproximated closed using 3-0 Vicryl in a running locking suture technique. The subcutaneous layer was reapproximated closed using 3-0 Vicryl and running suture technique. The skin was reapproximated closed on all incisions with 3-0 nylon in simple interrupted suture technique as well as horizontal mattress suture technique. The left lower extremities were cleaned and patted dry. Bone marrow aspirate concentrate was injected to all incisions to help with healing and decrease inflammation. Platelet poor plasma was sprayed to all incision, next bacitracin soaked Adaptic was applied to all incisions followed by dry sterile dressing and double layer Powell AO splint at 90 degrees was applied to the left lower extremity. The patient tolerated the procedure and anesthesia well and apparent satisfactory condition and was transported to the PACU for further monitoring prior to discharge home. Vital signs stable and vascular status intact to all digits bilateral. Need for skilled assistant principal: Raudel Amor DPM was critical to the outcome of the case. During the course of the procedure the assistant principal physician played a vital role. His intimate knowledge of my steps in the procedure aided in safe and expedient completion of the procedure. The assistant principal surgeon played a vital role in positioning particularly in obtaining the appropriate positioning. The assistant principal surgeon was also vital in the retraction of soft tissues during the exposure and protecting vital structures when needed. The surgeon was also vital and obtaining reduction and assisting with hardware placement throughout the case. Post Operative Plan: Weightbearing: Nonweightbearing to left lower extremity for 6 to 8 weeks with assistive knee scooter and or crutches. Full weightbearing right lower extremity. Antibiotics: 2 g Ancef through the IV DVT Prophylaxis: 81 mg aspirin [place]: None Dressing: Bacitracin soaked Adaptic, dry sterile dressing double or Powell AO splint at 90 degrees left lower extremity. X-Rays: Post-operative films taken on the operating room. Pain Medication: OxyContin 5 mg, Tylenol 1000 mg Follow-up: Patient will follow-up in 1 week to [address] Dowd in private office. She is to page me if she is having any questions or concerns. Surgical Findings: 1. Evidence of Lisfranc disruption with avulsion base fracture of the second metatarsal which was adequately reduced in anatomical reduction with internal brace and 5 hole locking and nonlocking plate and screws. Complications Complications: No Admit VTE Documentation VTE Present on Admission: No VTE Mechan Device Prophylaxis: SCD's VTE Pharm Prophylaxis ordered?: Yes
--- NOTE | 2024-10-24 10:44 | PCM.POST.ANE ---
Anesthesia: Postop Eval I Current Vital Signs Temperature: 97.1 F Pulse Rate: 92 Blood Pressure: 123/78 Respiratory Rate: 20 Pulse Ox: 95 Oxygen Delivery Method: Nasal Cannula Oxygen Flow Rate (L/min): 4 Assessment Airway patent: Yes Spontaneous unlabored respirations: Yes Mental status: Asleep nausea: No Vomiting: No Anesthesia Complication: No Fluid Hydration Crystalloid volume administer (ml): 1,050 Total IV fluid infused: 1,050 Progress Note Anesthesia document: Postop Eval 1 completed: Yes
--- NOTE | 2024-10-24 10:52 | POSTOPAN2_ITS ---
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 Spontaneous unlabored Yes 10/24/24 10:45 TRUCK DRIVER'S OFFSIDER.JDEF respirations Mental status Asleep 10/24/24 10:45 TRUCK DRIVER'S OFFSIDER.JDEF nausea No 10/24/24 10:45 TRUCK DRIVER'S OFFSIDER.JDEF Vomiting No 10/24/24 10:45 TRUCK DRIVER'S OFFSIDER.JDEF Anesthesia Postop Eval I: Fluid Summary Crystalloid volume administer 1,050 10/24/24 10:45 TRUCK DRIVER'S OFFSIDER.JDEF (ml) Colloids volume administered ( ml) Blood Product volume administered (ml) Total IV fluid infused 1,050 10/24/24 10:45 TRUCK DRIVER'S OFFSIDER.JDEF Anesthesia Postop Eval I: Summary Notes Anesthesia Complication No 10/24/24 10:45 TRUCK DRIVER'S OFFSIDER.JDEF Anesthesia Complication Comment: Post-operative progress note Anesthesia: Postop Eval II Evaluation Mental status: Awake Pain Level: 2 nausea: No Vomiting: No
--- NOTE | 2024-10-24 10:52 | PCM.POSTANE2 ---
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 Spontaneous unlabored Yes 10/24/24 10:45 MAGNET VALVE ASSEMBLER.JDEF respirations Mental status Asleep 10/24/24 10:45 MAGNET VALVE ASSEMBLER.JDEF nausea No 10/24/24 10:45 MAGNET VALVE ASSEMBLER.JDEF Vomiting No 10/24/24 10:45 MAGNET VALVE ASSEMBLER.JDEF Anesthesia Postop Eval I: Fluid Summary Crystalloid volume administer 1,050 10/24/24 10:45 MAGNET VALVE ASSEMBLER.JDEF (ml) Colloids volume administered ( ml) Blood Product volume administered (ml) Total IV fluid infused 1,050 10/24/24 10:45 MAGNET VALVE ASSEMBLER.JDEF Anesthesia Postop Eval I: Summary Notes Anesthesia Complication No 10/24/24 10:45 MAGNET VALVE ASSEMBLER.JDEF Anesthesia Complication Comment: Post-operative progress note Anesthesia: Postop Eval II Evaluation Mental status: Awake Pain Level: 2 nausea: No Vomiting: No
[2024-10-24] MEDS: Ketorolac 30 MG/ML Syringe IV (11:55)
== END 2024-10-24 12:58 | disposition home or self-care (01) ==
LOC: SDC 06:02 → AC 06:04
PROVIDERS: Anesthesiology; PCP Family Medicine; Referring Provider Podiatrist Foot & Ankle Surgery; Visit Provider Podiatrist Foot & Ankle Surgery
PROC: (CPT 28615; principal; 2024-10-24 07:15)
DX: S92.325A Nondisplaced fracture of second metatarsal bone, left foot, initial encounter for closed fracture (principal); F17.200 Nicotine dependence, unspecified, uncomplicated; W10.9XXA Fall (on) (from) unspecified stairs and steps, initial encounter
CPT/HCPCS: 28615; 38206; 01480; 73620; 76000; 81025; 82962; C1713; J2405; J3475